=== PATIENT | male | born 1960 | race Two or more races ===

== ENCOUNTER 2020-07-10 14:11 | Outpatient (CLI) | payer OTHER | END 2020-07-10 23:59 | disposition home or self-care (01) | LOC: MSC 14:11 | PROVIDERS: ATTEND Internal Medicine | DX: Z00.00 Encounter for general adult medical examination without abnormal findings (principal); R06.00 Dyspnea, unspecified; R19.7 Diarrhea, unspecified; Z82.49 Family history of ischemic heart disease and other diseases of the circulatory system; Z79.899 Other long term (current) drug therapy; Z79.82 Long term (current) use of aspirin; R35.1 Nocturia; E78.5 Hyperlipidemia, unspecified; N40.0 Benign prostatic hyperplasia without lower urinary tract symptoms ==

== ENCOUNTER 2020-07-17 16:00 | Outpatient (CLI) | payer OTHER | END 2020-07-17 23:59 | disposition home or self-care (01) | LOC: MSC 16:00 | PROVIDERS: ATTEND Internal Medicine | DX: R06.00 Dyspnea, unspecified (principal); R19.7 Diarrhea, unspecified; T78.40XA Allergy, unspecified, initial encounter; X58.XXXA Exposure to other specified factors, initial encounter; N40.0 Benign prostatic hyperplasia without lower urinary tract symptoms; Z86.16 Personal history of COVID-19; R07.81 Pleurodynia; R19.4 Change in bowel habit; Z82.49 Family history of ischemic heart disease and other diseases of the circulatory system; Z79.82 Long term (current) use of aspirin; Z79.899 Other long term (current) drug therapy ==

== ENCOUNTER 2020-09-15 15:07 | Outpatient (CLI) | payer OTHER | END 2020-09-15 23:59 | disposition home or self-care (01) | LOC: MSC 15:07 | PROVIDERS: ATTEND Internal Medicine | DX: R42 Dizziness and giddiness (principal); R07.89 Other chest pain; R06.00 Dyspnea, unspecified; Z95.0 Presence of cardiac pacemaker; Z79.82 Long term (current) use of aspirin; Z79.899 Other long term (current) drug therapy; R19.7 Diarrhea, unspecified; T78.40XA Allergy, unspecified, initial encounter; E78.5 Hyperlipidemia, unspecified; J30.2 Other seasonal allergic rhinitis ==